=== PATIENT | male | born 1950 | race Caucasian/White ===

== ENCOUNTER → 2020-08-18 | Outpatient (CLI) | payer OTHER, MEDICARE ==
[~2020-08-18] MED LIST: ALEVE220 MG PO; AMLODIPINE BESYL5 MG PO; CENTANY30 GM NASAL; COLACE100 MG PO; DUTASTERIDE0.5 MG PO; FLOMAX0.4 MG PO; HYDROCODONE-AP1 EAC6 PO; IBUPROFEN 200200 M1 PO; LIPITOR 20 MG T20 M1 PO; MS CONTIN15 MG PO; NAPROSYN500 MG PO; NORVASC 2.5 MG2.5 M1 PO; OXYCODONE-ACET1 EAC2 PO; OXYCODONE-ACET1 EACH PO; PAXIL10 MG; PERCOCET 10-321 EACH PO; PREDNISONE 10 M10 M1 PO; TAMSULOSIN HCL0.4 M1 PO; TRAMADOL 50 MG50 MG PO; VASCULERA630 MG PO; XARELTO10 MG PO
== END ==
LOC: LAB 14:15
PROVIDERS: ATTEND Surgery
DX: Z01.812 Encounter for preprocedural laboratory examination (principal); Z20.822 Contact with and (suspected) exposure to COVID-19

== ENCOUNTER 2020-08-23 08:06 | Day surgery (SDC) | payer OTHER, MEDICARE ==
[~2020-08-23] VITALS: Ht 180.3 cm; Wt 99.8 kg
--- NOTE | ~2020-08-23 | O ---
[facility] [place] [address] OPERATIVE REPORT Name: YOGI OWENS Otilia Room #: DEP [facility].#: [id number] Admission: 08/23/20 Attend Phys: Yogi Daniel MD Discharge: 08/23/20 Date of : 54 Report #: [id number] THIS REPORT FOR: cc: Bryon Kennedy Steven F. DO Chu, Peter Y. MD ~ DATE OF SERVICE: 08/23/2020 PREOPERATIVE DIAGNOSIS: Right inguinal hernia. POSTOPERATIVE DIAGNOSIS: Right inguinal hernia with both large direct and indirect component. PROCEDURES PERFORMED: Laparoscopic properitoneal repair of right inguinal hernia with mesh, 3DMax lightweight mesh, right-sided, large size. SURGEON: Yogi Daniel MD ESTIMATED BLOOD LOSS: 50 mL. COMPLICATIONS: None. PROCEDURE NOTE: With the patient under general anesthesia, Boyce catheter was placed. Abdomen was prepped and draped in sterile fashion. IV antibiotic was administered. Timeout was performed. A 0.25% Marcaine was used to anesthetize the skin adjacent to the umbilicus on the right side. After incising through the skin and subcutaneous tissue, the anterior fascia was opened under visualization. Muscle was spread. The space between the muscle and the posterior fascia was bluntly dissected with fingertip. Balloon trocar was placed through the space. At the patient's right inferior epigastric artery and vein is pretty close to the balloon trocar site. There was some oozing from the branches. A 5-mm trocar was placed about 2 inches below the umbilicus; this was placed in the properitoneal space under visualization. With cautery and blunt dissection, the properitoneal space was opened up. Dissection was carried down inferiorly. There was some vein branches that were oozing. Hemostasis was controlled. Suction java application developer was used to suction the blood out. The lateral wall was opened up. A second 5-mm trocar was placed lateral to the internal ring. This was placed under visualization. The patient had thought that there may be a left-sided hernia. I looked on the left side; there was a scar present and when I got down to the area of the inguinal ligament, there were sutures there. This was consistent with the prior repair. His scar from the open surgery was pretty sai, difficult to see. There was no recurrence in this area. The patient had a large right defect with properitoneal fat adhesed to it. This was taken down and the direct defect was visualized easily. The patient did have an indirect hernia sac also. This was a pretty broad base sac. [address] [address] OPERATIVE REPORT Name: YOGI OWENS [id number] Admission: 08/23/20 Attend Phys: Yogi Daniel MD Discharge: 08/23/20 Date of : 54 Report #: [id number] This was isolated without difficulty and the sac was reduced and freed from the cord structure. The vas deferens was visualized and preserved from harm. The hernia sac was freed off the cord. At this point, the internal ring was moderately dilated. The wall laterally was intact. A large right sided 3DMax lightweight mesh was then placed through the 11 mm balloon trocars. This was opened in the properitoneal space. This opened up well. This was positioned and lateral superiorly tacked to the abdominal wall. Inferomedially, tacked to the tissue above the pubic bone. Superomedially, it was tacked to the rectus muscle. This covered the direct defect well and also covered the internal ring. The mesh was at least 3 cm lateral to the internal ring and also 3 cm medial from the direct defect. Hemostasis obtained, CO2 was evacuated. During the procedure, the peritoneum was opened, air went into the peritoneal cavity. A third 5-mm trocar was placed in the left abdomen at the level slightly above the umbilicus. This was placed under visualization into the pneumoperitoneum and this was placed on a smoke evacuator to allow the air to release from the peritoneal cavity. This allowed the visualization of the properitoneal space. The air was evacuated from the properitoneal space. A 5-mm scope was placed in the 5 mm trocars and the abdominal work was examined. There was some bubbling of air in the properitoneum, but nothing else was visualized and the bowel was all looked normal. Air was evacuated from the abdominal cavity and the 5 mm trocars were removed. Fascia defect adjacent to the umbilicus was closed with 5-0 PDS [id number] x 2. Skin was irrigated. Skin was then closed with 5-0 PDS. Steri-Strip, Band-Aids applied. The patient was taken to recovery room having tolerated the procedure well. By: [id number] Yogi Daniel MD /nt
[2020-08-23 08:55] VITALS: BP 140/86
--- NOTE | 2020-08-23 11:44 | EKG ---
[address] [facility] [place] [place] [address] ELECTROCARDIOGRAM REPORT Name: YOGI OWENS Room #: 150-4 [facility]#: [id number] Admission: 08/23/20 Attend Phys: Yogi Daniel MD Discharge: Date of : 54 Report #: [id number] [facility] Test Date: 2020-08-23 Test Time: 08:51:14 Pat Name: YOGI OWENS Department: Room: 150 4 Gender: M Beet Topper: FABI : 1950 Requested By: Yogi Daniel Order Number: [id number] : Jabari Mendez Measurements Intervals [place] Rate: 72 P: 29 CA: 170 QRS: -16 QRSD: 107 T: 0 QT: 395 QTc: 433 Interpretive Statements Sinus rhythm Borderline left axis deviation Compared to ECG 12/07/2014 09:00:29 Left ventricular hypertrophy no longer present Electronically Signed On 08-23-2020 11:44:20 PHOTOGRAPHIC SUPERVISOR by Jabari Mendez [email or web address] <ELECTRONICALLY SIGNED> By: Jabari Mendez MD, [facility] 08/23/20 [id number] 0 Jabari Mendez MD, FACC /EPI
[2020-08-23] MEDS ORDERED: PERCOCET 5-3251 EACH PO (12:28)
== END 2020-08-23 13:45 | disposition home or self-care (01) ==
LOC: OR 08:06 → TBA 08:06 → OR 10:50
PROVIDERS: ATTEND Surgery
DX: K40.90 Unilateral inguinal hernia, without obstruction or gangrene, not specified as recurrent (principal); I10 Essential (primary) hypertension; E78.5 Hyperlipidemia, unspecified; G47.30 Sleep apnea, unspecified; N40.0 Benign prostatic hyperplasia without lower urinary tract symptoms; E78.00 Pure hypercholesterolemia, unspecified; Z98.890 Other specified postprocedural states; Z79.899 Other long term (current) drug therapy; Z85.828 Personal history of other malignant neoplasm of skin; Z96.651 Presence of right artificial knee joint; Z88.6 Allergy status to analgesic agent
CPT/HCPCS: 50010; 50101; 50411; 50455; 50507; 50555; 50848; 51489; 52265; 53065; 53307; 56525; 56526; 56719; 58574; 62110; 62900; 70005

== ENCOUNTER → 2021-04-21 | Outpatient (CLI) | payer OTHER, MEDICARE ==
[~2021-04-21] MED LIST changes: +PERCOCET 5-3251 EACH PO
== END ==
LOC: RAD 13:53
PROVIDERS: ATTEND Neuromusculoskeletal Medicine & OMM
DX: Z13.6 Encounter for screening for cardiovascular disorders (principal); I25.10 Atherosclerotic heart disease of native coronary artery without angina pectoris; E78.00 Pure hypercholesterolemia, unspecified

== ENCOUNTER → 2021-05-30 | Outpatient (CLI) | payer OTHER, MEDICARE | LOC: SJCVCIMAG 07:52 | PROVIDERS: ATTEND Internal Medicine | DX: I25.10 Atherosclerotic heart disease of native coronary artery without angina pectoris (principal); I10 Essential (primary) hypertension; E78.5 Hyperlipidemia, unspecified; R93.1 Abnormal findings on diagnostic imaging of heart and coronary circulation; Z82.49 Family history of ischemic heart disease and other diseases of the circulatory system; Z72.89 Other problems related to lifestyle; Z79.899 Other long term (current) drug therapy ==